=== PATIENT | male | born 1940 | race American Indian/Alaskan Native ===

== ENCOUNTER 2016-12-28 05:16 | Emergency (ER) | payer MEDICARE ==
[2016-12-28 05:54] LABS: Basophils % (Auto) 0.5 % (0.0-1.8); Eosinophils % (Auto) 1.7 % (0.0-4.3); Hematocrit 44.8 % (35.5-45.6); Hemoglobin 15.6 gm/dl (11.8-15.2); Mean Corpuscular HGB Conc 35 % (32-34); Mean Corpuscular Hemoglobin 31 pg (28-32); Mean Corpuscular Volume 89 fl (84-94); Platelet Count 219 K/mm3 (140-440); Red Blood Count 5.03 M/mm3 (3.65-5.03); Red Cell Distribution Width 14.3 % (13.2-15.2)
[2016-12-28 06:14] LABS: Alanine Aminotransferase 11 units/L (7-56); Albumin 4.6 g/dL (3.9-5); Albumin/Globulin Ratio 1.3 %; Alkaline Phosphatase 61 units/L (35-129); Anion Gap 19 mmol/L; BUN/Creatinine Ratio 10.83; Blood Urea Nitrogen 13 mg/dL (9-20); Calcium 9.7 mg/dL (8.4-10.2); Carbon Dioxide 28 mmol/L (22-30); Chloride 95.3 mmol/L (98-107); Glucose 115 mg/dL (75-100); Lipase 16 units/L (13-60); Sodium 140 mmol/L (137-145); Total Protein 8.1 g/dL (6.3-8.2)
[2016-12-28 06:17] LABS: Potassium 2.7 mmol/L (3.6-5.0)
[2016-12-28 07:02] LABS: Bilirubin,Urine NEG (Negative); Blood,Urine NEG (Negative); Ketones,Urine NEG (Negative); Leukocyte Esterase,Urine NEG (Negative); Nitrite,Urine NEG (Negative); Protein,Urine <15 mg/dL mg/dL (Negative); Urobilinogen,Urine < 2.0 mg/dL (<2.0); WBC,Urine < 1.0 /HPF (0.0-6.0)
--- NOTE | 2016-12-28 07:13 | XRay Report ---
ABDOMEN: Supine view of the abdomen is submitted. There is gas mixed with stool throughout the colon. There are no dilated loops of bowel or air-fluid levels. There is no free intraperitoneal gas. Multiple surgical clips are noted in the pelvis, correlate with history. IMPRESSION: Fecal retention.
[2016-12-28 11:50] VITALS: BP 150/82
[2016-12-28] MEDS ORDERED: K-DUR PO ONE (12:20)
--- NOTE | 2016-12-28 13:02 | Cat Scan Report ---
CT OF THE ABDOMEN AND PELVIS WITHOUT CONTRAST HISTORY: Abdominal pain. TECHNIQUE: Helical CT without contrast. Sagittal and coronal reformatted images. FINDINGS: The visualized lung bases are clear. Mild cardiomegaly with small pericardial fluid is noted. There are multiple small partially calcified gallstones within the gallbladder. No biliary dilatation. The liver, pancreas, spleen, kidneys and adrenal glands are unremarkable. The bowel loops are normal caliber and wall thickness. Normal appendix. The bladder is moderately distended. No bladder wall thickening or filling defect. The bony structures are intact. Mild thoracolumbar spondylosis is noted. IMPRESSION: No acute inflammatory process. Cholelithiasis. Mildly distended bladder. Correlate for bladder outlet obstruction. Mild cardiomegaly and small pericardial effusion.
--- NOTE | 2016-12-28 14:06 | Emergency Department Report ---
ED Abdominal Pain HPI - General Chief Complaint: Abdominal Pain Stated Complaint: CONSTIPATION Time Seen by Provider: 12/28/16 12:20 Source: patient Mode of arrival: Ambulatory Limitations: No Limitations - History of Present Illness MD Complaint: abdominal pain -: Gradual, days(s) Location: diffuse Radiation: none Migration to: no migration Severity: mild Severity scale (0 -10): 2 Quality: aching Consistency: intermittent Improves With: nothing Worsens With: nothing Associated Symptoms: constipation. denies: nausea, vomiting, diarrhea, fever, chills, dysuria, hematemesis, hematochezia, melena, hematuria, anorexia, syncope - Related Data Allergies Allergy/AdvReac Type Severity Reaction Status Date / Time No Known Allergies Allergy Verified 12/28/16 05:25 ED Review of Systems ROS: Stated complaint: CONSTIPATION Other details as noted in HPI Other: GENERAL: No weight change, fatigue, weakness, fever, chills, or night sweats SKIN: No changes in skin or hair, no itching, no rashes, no jaundice HEAD: No trauma, headache, or visual changes EYES: No blurriness, tearing, itching, acute visual loss, conjunctival discoloration, or scleral icterus EARS: No hearing loss, tinnitus, vertigo, or earache NOSE: No rhinorrhea, stuffiness, sneezing, itching, or epistaxis MOUTH: No bleeding gums, hoarseness, sore throat, or swelling CARDIAC: No new murmur, chest pain, palpitations, dyspnea on exertion, orthopnea , PND, or edema RESPIRATORY: No shortness of breath, wheeze, sputum production, hemoptysis, pneumonia, asthma, bronchitis, or emphysema GI: constipation, abdominal pain URINARY: No frequency, urgency, polyuria, dysuria, hematuria, or incontinence MUSCULOSKELETAL: right side pain with coughing and movement NEUROLOGIC: No loss of sensation, numbness, tingling, tremors, weakness, paralysis, seizures HEMATOLOGIC: No anemia, easy bruising, bleeding, petechiae, or purpura ENDOCRINE: No hot or cold intolerance, sweating, polyuria, polydipsia or, polyphagia no thyroid problems PSYCHIATRIC: No change in mood, no anxiety, no depression ED Past Medical Hx - Past Medical History Previous Medical History?: Yes Hx Hypertension: Yes Additional medical history: Glaucoma - Surgical History Past Surgical History?: Yes Additional Surgical History: Prostate - Social History Smoking Status: Never Smoker Substance Use Type: None ED Physical Exam - General Limitations: No Limitations - Other Other exam information: GENERAL: Patient in no acute distress HEAD: Normocephalic, atraumatic EYES: PERRLA, EOM intact, no scleral icterus, no conjunctival hemorrhage, visual mills and acuity wnl, NOSE: No tenderness, discharge, sinus tenderness MOUTH: No erythema, bleeding, exudate HEART: Regular rate and rhythm, no murmur, S1-S2 are auscultated, pulses are symmetric LUNGS: No wheezing, rales, rhonchi, bilateral breath sounds ABDOMEN: Normal bowel sounds, no tenderness, no rebound, no guarding, no masses , no CVA tenderness MUSCULOSKELETAL: Normal joint range of motion, no redness, no swelling, no tenderness NEUROLOGIC: GCS 15, Alert and Oriented, Cranial nerves intact, normal sensation , normal strength, normal gait, no cerebellar deficit PSYCHIATRIC: No homicidal or suicidal ideation, no anxiety, no depression, no hallucinations SKIN: Skin is warm and dry, no wounds, no rashes ED Course Vital Signs 12/28/16 12/28/16 05:30 11:48 Temperature 98.4 F 97.5 F L Pulse Rate 74 73 Respiratory 20 14 Rate Blood Pressure 142/85 150/82 [Right] O2 Sat by Pulse 97 97 Oximetry ED Medical Decision Making - Lab Data Result diagrams: 12/28/16 05:35 12/28/16 05:35 - EKG Data Interpretation: no acute changes - Radiology Data Radiology results: report reviewed - Medical Decision Making Patient comfortable. Updated with results. Plan discharge with close outpatient follow-up. Patient agrees with plan and will return if symptoms worsen. Critical care attestation.: If time is entered above; I have spent that time in minutes in the direct care of this critically ill patient, excluding procedure time. ED Disposition Clinical Impression: Abdominal pain in male, Hypokalemia Constipation Qualifiers: Constipation type: unspecified constipation type Qualified Code(s): K59.00 - Constipation, unspecified Gallstone Qualifiers: Cholecystitis presence: without cholecystitis Biliary obstruction: without biliary obstruction Qualified Code(s): K80.20 - Calculus of gallbladder without cholecystitis without obstruction Disposition: TO HOME OR SELFCARE Is pt being admited?: No Condition: Stable Instructions: Constipation (ED), Biliary Colic (ED), Abdominal Pain (ED) Referrals: PRIMARY CARE, [Primary Care Provider] - 2-3 Days KANE ONEIL MD [Staff Physician] - 2-3 Days Time of Disposition: 14:05
== END 2016-12-28 14:09 | disposition home or self-care (01) ==
LOC: ED 05:16
DX: K80.20 Calculus of gallbladder without cholecystitis without obstruction (principal); E87.6 Hypokalemia; K59.00 Constipation, unspecified; I10 Essential (primary) hypertension
CPT/HCPCS: 36415; 74000; 74176; 80053; 81001; 83690; 84443; 84484; 85025; 99284

== ENCOUNTER 2018-10-15 23:48 | Emergency (ER) | payer MEDICARE ==
[~2018-10-15 23:48] MED LIST: ADRENALIN ONE; CORDARONE IV ONE; XYLOCAINE CARDIAC IV ONE; XYLOCAINE/D5W 2GM/500ML DRIP IV ONE
--- NOTE | 2018-10-16 00:11 | Emergency Department Report ---
HPI - General Time Seen by Provider: 10/16/18 00:04 - HPI HPI: Room 22 The patient is a 78-year-old male presenting with chief complaint cardiac arrest. Per EMS the patient was felt pulseless after being seen approximately 5 minutes prior in his normal state of health. EMS states they arrived on scene at 23:17 to find the patient in PEA. The patient was intubated and ACLS protocols initiated. The patient developed V. fib 2 and was defibrillated and was found to be in asystole per EMS just prior to arrival to the ED. Upper arrival to the ED the patient was found to be in fine V. fib and ACLS protocols were continued without return of spontaneous circulation Location: [See above] Duration: [See above] Quality: [See above] Severity: [See above] Modifying factors: [see above] Context: [see above] Mode of transportation: [not driving] ED Past Medical Hx - Past Medical History Hx Hypertension: Yes Hx of Cancer: Yes (prostate CA) Additional medical history: Glaucoma - Surgical History Past Surgical History?: No Additional Surgical History: Prostate - Family History Family history: no significant - Social History Smoking Status: Never Smoker Substance Use Type: None ED Review of Systems ROS: Stated complaint: CARDIAC ARREST Other details as noted in HPI Comment: Unobtainable due to pts medical conditions Physical Exam - Physical Exam Physical Exam: GENERAL: The patient is well-developed well-nourished []. [] HEENT: Normocephalic. Atraumatic. NECK: Trachea midline CHEST/LUNGS: No spontaneous respirations. Breath sounds equal bilaterally with bagging through ET tube HEART/CARDIOVASCULAR: No heart sounds ABDOMEN:There is no abdominal distention. SKIN:There is no diaphoresis. NEURO: GCS 3T MUSCULOSKELETAL: There is no evidence of acute injury. ED Medical Decision Making - Differential Diagnosis cardiac arrest Critical care attestation.: If time is entered above; I have spent that time in minutes in the direct care of this critically ill patient, excluding procedure time. ED Disposition Clinical Impression: Cardiac arrest Disposition: DC-20 Is pt being admited?: No Does the pt Need Aspirin: No Condition: Poor Time of Disposition: 00:05 (patient )
== END 2018-10-16 02:00 ==
LOC: ED 23:48
DX: I46.9 Cardiac arrest, cause unspecified (principal); I10 Essential (primary) hypertension
CPT/HCPCS: 92950; 99285; J0171; J0282; J2001